=== PATIENT | female | born 1945 | race Caucasian/White ===

== ENCOUNTER 2024-07-08 19:24 | Emergency (ER) | payer MEDICARE, SELFPAY ==
[2024-07-08 19:26] VITALS: BP 158/77; PULSE 81; RESP 18; TEMP 37.1; O2SAT 91; BMI 23.5
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
--- NOTE | 2024-07-08 19:32 | ECG_ITS ---
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1945 Requested By: Emilia Leo Order Number: [id number] [place] MD: ERICK BEAR Measurements Intervals [place] Rate: 78 P: 71 MA: 143 QRS: -57 QRSD: 94 T: 116 QT: 389 QTc: 444 Interpretive Statements SINUS RHYTHM LEFT ANTERIOR FASCICULAR BLOCK [QRS AXIS <= -45, QR IN I, RS IN II] POSSIBLE ANTERIOR MYOCARDIAL INFARCTION , PROBABLY OLD [30 ms Q WAVE IN V3/V4, OR R < 0.2 mV IN V4] MODERATE T-WAVE ABNORMALITY, CONSIDER LATERAL ISCHEMIA [-0.1+ mV T-WAVE IN I/aVL/V5/V6] No previous ECG available for comparison Electronically Signed On 07-09-2024 18:51:37 CDT by ERICK BEAR [email or web address]
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
[2024-07-08] MEDS: ceFAZolin 2,000 mg SDV 2000 MG IVP (20:14)
[2024-07-08 20:15] LABS: Basophils % 0.2 %; Eosinophils # 0.1 10^3/uL (0.0-0.8); Eosinophils % 0.5 %; Hematocrit 37.8 % (36-47); Lymphocytes # 2.1 10^3/uL (0.8-4.8); Lymphocytes % 10.4 %; Mean Corpuscular HGB Conc 32.8 g/dL (30-55); Mean Corpuscular Volume 94.5 fl (85-98); Mean Platelet Volume 9.8 fL (7.4-10.4); Monocytes # 0.9 10^3/uL (0.2-0.9); Monocytes % 4.7 %; Neutrophils # 16.63 10^3/uL (1.8-7.7); Neutrophils % 83.5 %; Nucleated Red Blood Cells % 0 %; Platelet Count 374 10^3/cmm (157-399); Red Cell Distribution Width 13.8 % (12.1-15.1); White Blood Count 19.93 10^3/uL (3.29-11.43)
[2024-07-08] MEDS: tetanus-dipt-pertussis 0.5 mL SDV IM (20:15)
[2024-07-08] MEDS: ondansetron 2 mg/ML SDV 2 mL 4 MG IVP (20:15)
[2024-07-08 20:16] VITALS: RESP 20; O2SAT 98
[2024-07-08] MEDS: HYDROmorphone 1 mg/mL INJ 1 mL IVP (20:16)
--- NOTE | 2024-07-08 20:27 | PC.NURSE ---
Pt. on back board on arrival and cleared by Dr. Lion. Pt. has C collar placed on arrival by ER staff. Several attempts to start second IV , with no success, physician notified and accepting facility notified.
[2024-07-08 20:29] VITALS: BP 141/78; PULSE 81; RESP 18; O2SAT 98
[2024-07-08 20:36] LABS: Alanine Aminotransferase 35 U/L (0-33); Albumin Level 4.1 g/dL (3.5-5.2); Alkaline Phosphatase 63 U/L (35-105); Blood Urea Nitrogen 28 mg/dL (8-23); Calcium 9.1 mg/dL (8.5-10.5); Carbon Dioxide 22 mmol/L (22-29); Chloride 101 mmol/L (98-107); Creatinine Clr Calc Pharmacy 43.3915; Globulin 2.9 g/dL (1.3-4.6); Glucose 138 mg/dL (65-115); Osmolality Calculated 294 mOsm/kg (285-295); Sodium 138 mmol/L (136-145); Total Bilirubin 0.2 mg/dL (0.15-1.2)
[2024-07-08 20:37] LABS: Lactic Sepsis W/Reflex 2.6 mmol/L (0.5-2.2)
[2024-07-08 20:40] LABS: Anion Gap 18.9 (5-19); Aspartate Amino Transferase 39 U/L (0-32); Potassium 3.9 mmol/L (3.5-5.1)
[2024-07-08 20:53] VITALS: BP 148/76; PULSE 68; RESP 18; O2SAT 99
[2024-07-08 22:01] LABS: Reflex Lactate Order REFLEX LACTIC ORDERD
== END 2024-07-08 21:02 | disposition short-term general hospital (02) ==
PROVIDERS: Emergency Provider Emergency Medicine
DX: S72.352A Displaced comminuted fracture of shaft of left femur, initial encounter for closed fracture (principal); S72.491A Other fracture of lower end of right femur, initial encounter for closed fracture; S20.211A Contusion of right front wall of thorax, initial encounter; S90.812A Abrasion, left foot, initial encounter; S90.811A Abrasion, right foot, initial encounter; S80.812A Abrasion, left lower leg, initial encounter; S80.811A Abrasion, right lower leg, initial encounter; V89.2XXA Person injured in unspecified motor-vehicle accident, traffic, initial encounter; Z23 Encounter for immunization
CPT/HCPCS: 71045; 72170; 73551; 80053; 83605; 85025; 90715; 93005; 96374; 96375; 99285; J0690; J1170; J2405